=== PATIENT | female | born 1940 | race Caucasian/White ===

== ENCOUNTER 2017-02-22 08:44 | Emergency (ER) | payer MEDICARE, OTHER ==
[2017-02-22 09:19] LABS: #Basophils 0.1 thou/uL (0.0-0.2); #Eosinphils 0.1 thou/uL (0.0-0.7); #Lymphocytes 1.2 thou/uL (1.20-3.40); #Monocytes 0.4 thou/uL (0.11-0.59); #Neutrophils 8.2 thou/uL (1.40-6.50); %Basophils 0.5 % (0.0-1.0); %Eosinophils 0.8 % (0.0-10.0); %Lymphocytes 11.7 % (21.0-51.0); %Monocytes 4.3 % (0.0-10.0); Red Blood Cell (RBC) Count 4.04 mill/uL (4.20-5.40); White Blood Cell (WBC) Count 9.9 thou/uL (4.8-10.8)
[2017-02-22 09:37] LABS: ALT (SGPT) 13 U/L (8-55); AST (SGOT) 20 U/L (5-34); Alkaline Phosphatase 97 U/L (40-150); Anion Gap 13 mmol/L (10-20); BUN (Urea Nitrogen) 32 mg/dL (9.8-20.1); Bilirubin, Total 0.3 mg/dL (0.2-1.2); Calc. Creatinine Clearance 0 mL/min (70-130); Calcium 9.7 mg/dL (7.8-10.44); Carbon Dioxide 26 mmol/L (23-31); Chloride 104 mmol/L (98-107); Estimated GFR-MDRD 43; Globulin 3.8 g/dL (2.4-3.5); Protein, Total 7.9 g/dL (6.0-8.3)
[2017-02-22] MEDS ORDERED: Morphine 2 mg/2ml in 0.9% NaCl PF SYRINGE ONE (09:44)
[2017-02-22] MEDS ORDERED: Ondansetron HCl/PF 4 MG/2 ML Vial ONE (09:44)
--- NOTE | 2017-02-22 10:06 | RAD ---
CHEST 1 VIEW: Date: 02/22/17 HISTORY: Left shoulder pain. COMPARISON: None. FINDINGS: Lungs are clear. No pneumothorax or effusion. Cardiac silhouette and mediastinal contour within terri l limits. Lungs are slightly hyperinflated. Mild S-shaped scoliosis thoracic spine. No displaced rib fracture. IMPRESSION: Mild lung hyperinflation. No acute intrathoracic abnormality. POS: OFF
[2017-02-22] MEDS ORDERED: Morphine 4 MG/ML VIAL ONE (10:27)
[2017-02-22] MEDS ORDERED: Ketorolac Tromethamine 30 MG/ML VIAL ONE (10:27)
--- NOTE | 2017-02-22 11:33 | CT ---
CT ABDOMEN AND PELVIS WITHOUT CONTRAST STONE PROTOCOL: Date: 02/22/17 HISTORY: Left flank pain. FINDINGS: There are mild atelectatic changes at the lung bases. No pericardial effusion. There is some low grad e edema at the proximal small bowel mesentery with small lymph nodes. No dilated loops of large or sm all bowel. Appendix is visualized and is normal. No hydronephrosis. No nephroureterolithiasis or hydr oureteronephrosis. There is extensive facet arthrosis lower lumbar spine. IMPRESSION: 1. No nephroureterolithiasis or hydroureteronephrosis. No significant evidence for recently passed s tone. 2. No acute inflammatory process within the abdomen or pelvis. 3. Nonspecific proximal small bowel mesenteric edema. 4. Normal appendix. POS: OFF
[2017-02-22 12:17] LABS: Bilirubin Negative (Negative); Blood, Urine Negative (Negative); Glucose, Urine (Dipstick) Negative (Negative); Ketone, Urine 15 mg/dL (Negative); Nitrite Negative (Negative); Protein, Urine (Dipstick) Negative (Neg-Trace); Urobilinogen 0.2 mg/dL (0.2-1.0)
[2017-02-22] MEDS ORDERED: Methocarbamol 1 GM in Sodium Chloride 0.9% 100 ML IVPB SCH (13:30)
--- NOTE | 2017-02-24 15:40 | EKG ---
Test Reason : Blood Pressure : / mmHG Vent. Rate : 074 BPM Atrial Rate : 074 BPM P-R Int : 126 ms QRS Dur : 074 ms QT Int : 412 ms P-R-T Axes : 077 051 070 degrees QTc Int : 457 ms Sinus rhythm with occasional Premature ventricular complexes Otherwise normal ECG Confirmed by CHARO ANDERSON D.O. ([id number]), managing editor ROSIE LOMAS ([id number]) on 02/24/2017 3:40:08 PM Referred By: Confirmed By:CHARO ANDERSON D.O.
== END 2017-02-22 15:40 | disposition home or self-care (01) ==
LOC: ERS 08:44
DX: M54.9 Dorsalgia, unspecified (principal); R10.12 Left upper quadrant pain; R10.32 Left lower quadrant pain; R11.2 Nausea with vomiting, unspecified; R19.7 Diarrhea, unspecified; Z79.899 Other long term (current) drug therapy
CPT/HCPCS: 36415; 71010; 74176; 80053; 81003; 85025; 87086; 93005; 96361; 96365; 96375; 96376; J1885; J2270; J2405; J2800; J7050

== ENCOUNTER 2021-12-07 10:43 | Outpatient (CLI) | payer MEDICARE, OTHER ==
[2021-12-07 12:06] LABS: #Eosinphils 0.3 10x3/uL (0.0-0.5); #Monocytes 0.5 10x3/uL (0.0-1.1); #Neutrophils 2.2 10x3/uL (1.5-8.4); %Basophils 0.7 % (0.0-2.0); %Eosinophils 7.3 % (0.0-6.0); %Lymphocytes 30.7 % (18.0-47.0); %Monocytes 10.8 % (0.0-10.0); %Neutrophils 50.5 % (40.0-75.0); Hemoglobin 12.6 g/dL (12.0-15.5); Mean Corpuscular HGB CONC 33.2 g/dL (32.0-36.0); Mean Corpuscular Volume 93.6 fl (81.6-98.3); Mean Platelet Volume 10.8 fl (7.4-10.4); Platelet Count 195 10x3/uL (150-450); RBC Distribution Width 11.9 % (11.5-14.5); Red Blood Cell (RBC) Count 4.06 10x6/uL (3.90-5.03); White Blood Cell (WBC) Count 4.4 10x3/uL (3.5-10.5)
[2021-12-07 12:36] LABS: Prothrombin Time 10.9 sec (9.5-12.1)
[2021-12-07 12:57] LABS: Anion Gap 12 mmol/L (10-20); BUN (Urea Nitrogen) 18 mg/dL (9.8-20.1); Calc. Creatinine Clearance 0 mL/min (70-130); Calcium 9.6 mg/dL (7.8-10.44); Carbon Dioxide 27 mmol/L (23-31); Chloride 106 mmol/L (98-107); Estimated GFR 38; Glucose 95 mg/dL (83-110); Potassium 4.7 mmol/L (3.5-5.1); Sodium 140 mmol/L (136-145)
== END 2021-12-07 10:44 | disposition home or self-care (01) ==
LOC: LABBT 10:43
PROVIDERS: ATTEND Orthopaedic Surgery
DX: Z01.818 Encounter for other preprocedural examination (principal); M17.11 Unilateral primary osteoarthritis, right knee; Z20.822 Contact with and (suspected) exposure to COVID-19
CPT/HCPCS: 80048; 85025; 85610; 87081; 87811; 93005; 93010

== ENCOUNTER 2021-12-12 05:29 | Observation (INO) | payer MEDICARE, OTHER ==
[2021-12-12] MEDS ORDERED: Sodium Chloride 0.9% 100 ML ONE ×2 (05:58→07:04)
[2021-12-12] MEDS ORDERED: Tranexamic Acid 1,000 MG/10 ML VIAL ONE (05:58)
[2021-12-12] MEDS ORDERED: Vancomycin 1 GM/200 ML BAG ONE (05:58)
[2021-12-12] MEDS ORDERED: Bupivacaine PF 0.5% 30 ML VIAL ONE (06:26)
[2021-12-12] MEDS ORDERED: fentaNYL Citrate/PF 100 MCG/2 ML SYRINGE ONE (06:27)
[2021-12-12] MEDS ORDERED: Lidocaine 1% MPF 2 ML VIAL ONE ×2 (06:43→07:24)
[2021-12-12] MEDS ORDERED: Fentanyl 100 MCG/2 ML VIAL ONE ×2 (06:43→09:04)
[2021-12-12] MEDS ORDERED: Midazolam HCl 2 mg/2 ml Vial ONE (06:43)
[2021-12-12] MEDS ORDERED: Acetaminophen 325 MG TAB PO PRN (06:58)
[2021-12-12] MEDS ORDERED: HYDROcodone/Acetaminophen 10/325 mg Tablet PO PRN ×4 (06:58→07:30)
[2021-12-12] MEDS ORDERED: Promethazine HCl 25 MG/ML VIAL IM PRN ×2 (06:58→07:30)
[2021-12-12] MEDS ORDERED: Zolpidem Tartrate 5 MG TAB PO PRN ×2 (06:58→07:30)
[2021-12-12] MEDS ORDERED: diphenhydrAMINE 25 MG CAP PO PRN (06:58)
[2021-12-12] MEDS ORDERED: Fentanyl 100 MCG/2 ML VIAL SLOW IVP PRN ×2 (06:58→07:20)
[2021-12-12] MEDS ORDERED: Ondansetron PF 4 MG/2 ML Vial IVP PRN ×2 (06:58→07:30)
[2021-12-12] MEDS ORDERED: CEFAZOLIN 2 GM VIAL ONE (07:04)
[2021-12-12] MEDS ORDERED: Ropivacaine 0.5% HCl/PF (150 MG/30 ML VIAL) ONE (07:24)
[2021-12-12] MEDS ORDERED: Dexamethasone 20 MG/5 ML VIAL ONE (07:24)
[2021-12-12] MEDS ORDERED: ePHEDrine 50 MG/ML VIAL ONE (07:24)
[2021-12-12] MEDS ORDERED: PROPOFOL 200 MG/20 ML VIAL ONE (07:24)
[2021-12-12] MEDS ORDERED: Ondansetron PF 4 MG/2 ML Vial ONE (07:24)
[2021-12-12] MEDS ORDERED: Ropivacaine 0.2% 550 ML 550 ML NERVE BLCK SCH (07:30)
[2021-12-12] MEDS ORDERED: traMADol HCl 50 MG TAB PO PRN ×2 (07:30)
[2021-12-12] MEDS ORDERED: Levofloxacin 500 mg/D5W 100 ml Premix Bag ONE (07:34)
[2021-12-12] MEDS ORDERED: oxyCODONE/Acetaminophen 5 mg/325 mg Tablet PO PRN ×2 (08:49)
[2021-12-12] MEDS: Fluorometholone 0.1% Ophth Soln 5 ml Bottle EA EYE SCH (10:46)
[2021-12-12] MEDS: Aspirin 81 mg Enteric Coated Tablet PO SCH ×2 (10:46→20:43)
[2021-12-12] MEDS: Multivitamin W/ Minerals 1 TAB PO SCH (10:46)
[2021-12-12] MEDS: Ferrous Gluconate 324 MG TAB PO SCH ×2 (10:46→20:43)
[2021-12-12] MEDS: Senokot S 8.6-50 MG TAB PO SCH ×2 (10:46→20:44)
[2021-12-12 11:42] VITALS: BMI 22.3
[2021-12-12] MEDS: Ketorolac Tromethamine 30 MG/ML VIAL IVP SCH ×2 (12:18→17:57)
[2021-12-12] MEDS: Sodium Chloride 0.9% 1,000 ML IV SCH ×2 (17:58)
[2021-12-12] MEDS ORDERED: Vancomycin HCl 1.5 GM in Sodium Chloride 0.9% 250 ML 300 ML IVPB SCH (18:00)
[2021-12-13] MEDS: Ketorolac Tromethamine 30 MG/ML VIAL IVP SCH ×5 (03:09→23:51)
[2021-12-13] MEDS: Sodium Chloride 0.9% 1,000 ML IV SCH ×2 (04:47→13:24)
[2021-12-13 05:26] LABS: Hemoglobin 10.4 g/dL (12.0-16.0); Mean Corpuscular HGB CONC 33.3 g/dL (32.0-36.0); Mean Corpuscular Hemoglobin 32.4 pg (27.0-31.0); Mean Corpuscular Volume 97.4 fL (78.0-98.0); Mean Platelet Volume 8.3 fL (7.4-10.4); Platelet Count 147 thou/uL (130-400); RBC Distribution Width 10.8 % (11.5-14.5); Red Blood Cell (RBC) Count 3.22 mill/uL (4.20-5.40); White Blood Cell (WBC) Count 8.6 thou/uL (4.8-10.8)
[2021-12-13] MEDS: Multivitamin W/ Minerals 1 TAB PO SCH (10:31)
[2021-12-13] MEDS: Aspirin 81 mg Enteric Coated Tablet PO SCH ×2 (10:31→21:32)
[2021-12-13] MEDS: Senokot S 8.6-50 MG TAB PO SCH ×2 (10:31→21:33)
[2021-12-13] MEDS: Fluorometholone 0.1% Ophth Soln 5 ml Bottle EA EYE SCH (10:32)
[2021-12-13] MEDS: Ferrous Gluconate 324 MG TAB PO SCH ×2 (10:32→21:33)
[2021-12-14] MEDS: Sodium Chloride 0.9% 1,000 ML IV SCH ×2 (04:35→12:15)
[2021-12-14] MEDS: Ketorolac Tromethamine 30 MG/ML VIAL IVP SCH (05:49)
[2021-12-14] MEDS ORDERED: HYDROcodone/Acetaminophen 5/325 mg Tablet PO PRN ×2 (08:36)
[2021-12-14] MEDS ORDERED: HYDROcodone/Acetaminophen 10/325 mg Tablet PO PRN (08:36)
[2021-12-14] MEDS: Aspirin 81 mg Enteric Coated Tablet PO SCH (08:52)
[2021-12-14] MEDS: Ferrous Gluconate 324 MG TAB PO SCH (08:52)
[2021-12-14] MEDS: Senokot S 8.6-50 MG TAB PO SCH (08:52)
[2021-12-14] MEDS: Multivitamin W/ Minerals 1 TAB PO SCH (08:52)
[2021-12-14 12:14] VITALS: BP 138/78; TEMP 98.1
[2021-12-14] MEDS: Fluorometholone 0.1% Ophth Soln 5 ml Bottle EA EYE SCH (12:15)
== END 2021-12-14 11:25 | disposition home or self-care (01) ==
LOC: SDC 05:29 → SJJU 06:58 → SDC 10:56 → SJJU 10:56
PROVIDERS: ADMIT Orthopaedic Surgery; ATTEND Orthopaedic Surgery
PROC: 0SRC0J9 Replacement of Right Knee Joint with Synthetic Substitute, Cemented, Open Approach (ICD-10-PCS; principal; 2021-12-12)
PROC: 8E0YXBZ Computer Assisted Procedure of Lower Extremity (ICD-10-PCS; 2021-12-12)
DX: M17.11 Unilateral primary osteoarthritis, right knee (principal); I95.1 Orthostatic hypotension; Z88.0 Allergy status to penicillin; Z88.1 Allergy status to other antibiotic agents; Z91.040 Latex allergy status; Z91.018 Allergy to other foods; Z91.011 Allergy to milk products
CPT/HCPCS: 20985; 27447; 73560; 82962; 85027; 97110 ×3; 97116 ×3; 97530 ×2; A4306; C1713; C1776; 36415; 36416; J0690; J1100; J1885; J1956; J2250; J2405; J2550; J2704; J2795; J3010; J3370; J3490; J7050; S0020